=== PATIENT | male | born 1935 | race Caucasian/White ===

== ENCOUNTER 2017-03-02 16:37 | Emergency (ER) | payer OTHER ==
[2017-03-02] MEDS ORDERED: Sodium Chloride 0.9% 10 ML Syringe FLUSH PRN ×2 (17:30)
[2017-03-02] MEDS ORDERED: Acetaminophen 325 MG Tab PO ONE (17:30)
--- NOTE | 2017-03-02 17:35 | EDM.PDOC ---
ED HPI NEURO - General Chief Complaint: Neuro Symptoms/Deficits Stated Complaint: NOT ACTING RIGHT Time Seen by Provider: 03/02/17 17:23 Source: Reports: Patient, Family, RN notes reviewed History Limitations: Reports: No limitations - History of Present Illness INITIAL COMMENTS - FREE TEXT/NARRATIVE: 82-year-old gentleman presents emergency department today with a couple of issues he is complaining of burning with urination has been more confused at times he's also developed a new deviation of his tongue and left-sided facial droop, symptoms have been ongoing for the last couple days he does have a history of urinary tract infection with sepsis - Related Data Allergies/ADRs: Allergies Allergy/AdvReac Type Severity Reaction Status Date / Time IVP DYE Allergy Cannot Uncoded 03/02/17 16:55 Remember Home Meds: Home Meds . [Unable to Verify Home Med List] 03/02/17 [History] Past Medical History HEENT History: Reports: Hard of hearing, Impaired vision Cardiovascular History: Reports: Hypertension Genitourinary History: Reports: UTI, recurrent Musculoskeletal History: Reports: Fracture Other Musculoskeletal History: fingures Neurological History: Reports: Concussion Psychiatric History: Reports: Anxiety, Depression Endocrine/Metabolic History: Reports: Diabetes, type II - Infectious Disease History Infectious Disease History: Reports: Chicken pox, Mumps - Past Surgical History HEENT Surgical History: Reports: Cataract surgery GI Surgical History: Reports: Colonoscopy Musculoskeletal Surgical History: Reports: Hip replacement Social & Family History - Tobacco Use Smoking Status *Q: Never Smoker Second Hand Smoke Exposure: No - Caffeine Use Caffeine Use: Reports: Soda - Recreational Drug Use Recreational Drug Use: No ED ROS GENERAL - Review of Systems Review Of Systems: See Below Constitutional: Reports: fever, chills, weakness, fatigue HEENT: Reports: No symptoms Respiratory: Reports: No Symptoms Cardiovascular: Reports: No symptoms GI/Abdominal: Reports: No symptoms : Reports: dysuria Musculoskeletal: Reports: no symptoms Skin: Reports: no symptoms Neurological: Reports: Weakness, Other (Facial droop left side, tongue deviation to the left) ED EXAM, NEURO - Physical Exam Exam: See Below Text/Narrative:: General: Elderly male, not in any distress, alert and oriented x3 HEENT: head is atraumatic normocephalic, eyes pupils equal round reactive to light, sclera clear no conjunctivitis appreciated. Ears hearing aids in place bilaterally. Nose no septal deviation, nares are clear, no blood present. Mouth mucosa is dry and pink no erythema or exudate noted in soft palate, tongue is points to the left uvula is midline, dentition is intact. Neck: Supple no thyromegaly no tracheal deviation. Nodes: Cervical nodes subclavicular nodes nontender no palpable lymphadenopathy noted. Lungs: clear to auscultation bilaterally with symmetrical respirations, no adventitious noise appreciated. CV: Regular rate and rhythm S1 and S2 appreciated no murmurs rubs or gallops noted. Abdomen: Soft, nontender, no palpable masses or organomegaly appreciated, no distention no guarding bowel sounds are present, . Neuro: Cranial nerves II through XII grossly intact, power is 5 x 5 in the upper and lower extremities there is no pronator drift Skin: Warm and dry, intact Extremities: No lower extremity edema appreciated, Course - Vital Signs Last Recorded V/S: Last Vital Signs Temp 217.9 F H 03/02/17 20:04 Pulse 114 H 03/02/17 20:04 Resp 32 H 03/02/17 20:04 BP 142/72 H 03/02/17 20:04 Pulse Ox 92 L 03/02/17 20:04 - Orders/Labs/Meds Orders: Active Orders 24 hr Category Date Time Status EKG Documentation Completion [RC] ASDIRECTED Care 03/02/17 17:31 Active Peripheral IV Care [RC] . DIRECTED Care 03/02/17 17:30 Active Chest 1V Frontal [CR] Urgent Exams 03/02/17 17:30 Taken Head wo Cont [CT] Urgent Exams 03/02/17 17:30 Taken CULTURE BLOOD [BC] Urgent Lab 03/02/17 17:35 Results CULTURE BLOOD [BC] Urgent Lab 03/02/17 17:45 Received CULTURE URINE [RM] Urgent Lab 03/02/17 18:00 Results Blood Culture x2 Reflex Set [OM.PC] Urgent Oth 03/02/17 17:30 Ordered Peripheral IV Insertion Adult [OM.PC] Urgent Oth 03/02/17 17:30 Ordered EKG 12 Lead [EK] Urgent Ther 03/02/17 17:30 Ordered Labs: Laboratory Tests 03/02/17 03/02/17 03/02/17 Range/Units 17:35 17:35 17:35 WBC 23.3 H (4.5-11.0) K/uL RBC 4.94 (4.30-5.90) M/uL Hgb 15.8 H (12.0-15.0) g/dL Hct 46.3 (40.0-54.0) % MCV 94 (80-98) fL MCH 32 H (27-31) pg MCHC 34 (32-36) % Plt Count 191 (150-400) K/uL Neut % (Auto) 93 H (36-66) % Lymph % (Auto) 2 L (24-44) % [place] % (Auto) 5 (2-6) % Eos % (Auto) 0 L (2-4) % Baso % (Auto) 0 (0-1) % PT 12.0 (9.5-12.0) sec INR 1.13 (0.80-1.20) APTT 30.0 (27.0-36.0) sec Sodium 138 L (140-148) mmol/L Potassium 3.8 (3.6-5.2) mmol/L Chloride 101 (100-108) mmol/L Carbon Dioxide 25 (21-32) mmol/L Anion Gap 15.8 H (5.0-14.0) mmol/L BUN 31 H (7-18) mg/dL Creatinine 1.8 H (0.8-1.3) mg/dL Est Cr Clr Drug Dosing 31.54 mL/min Estimated GFR (MDRD) 36 L (>60) Glucose 457 H* (74-106) mg/dL Lactic Acid (0.4-2.0) mmol/L Calcium 8.7 (8.5-10.1) mg/dL Total Bilirubin 1.1 H (0.2-1.0) mg/dL AST 22 (15-37) U/L ALT 37 (12-78) U/L Alkaline Phosphatase 139 H (46-116) U/L Ammonia (11-32) mmol/L Total Protein 8.3 H (6.4-8.2) g/dL Albumin 3.4 (3.4-5.0) g/dL Globulin 4.9 H (2.3-3.5) g/dL Albumin/Globulin Ratio 0.7 L (1.2-2.2) Urine Color Urine Appearance Urine pH (4.5-8.0) Ur Specific [place] (1.008-1.030) Urine Protein (NEGATIVE) mg/dL Urine Glucose (UA) (NEGATIVE) mg/dL Urine Ketones (NEGATIVE) mg/dL Urine Occult Blood (NEGATIVE) Urine Nitrite (NEGAITVE) Urine Bilirubin (NEGATIVE) Urine Urobilinogen (NORMAL) mg/dL Ur Leukocyte Esterase (NEGATIVE) Urine RBC (0-5) Urine WBC (0-5) Ur Epithelial Cells Amorphous Sediment Urine Bacteria Urine Mucus 03/02/17 03/02/17 03/02/17 Range/Units 17:35 17:35 18:40 WBC (4.5-11.0) K/uL RBC (4.30-5.90) M/uL Hgb (12.0-15.0) g/dL Hct (40.0-54.0) % MCV (80-98) fL MCH (27-31) pg MCHC (32-36) % Plt Count (150-400) K/uL Neut % (Auto) (36-66) % Lymph % (Auto) (24-44) % [place] % (Auto) (2-6) % Eos % (Auto) (2-4) % Baso % (Auto) (0-1) % PT (9.5-12.0) sec INR (0.80-1.20) APTT (27.0-36.0) sec Sodium (140-148) mmol/L Potassium (3.6-5.2) mmol/L Chloride (100-108) mmol/L Carbon Dioxide (21-32) mmol/L Anion Gap (5.0-14.0) mmol/L BUN (7-18) mg/dL Creatinine (0.8-1.3) mg/dL Est Cr Clr Drug Dosing mL/min Estimated GFR (MDRD) (>60) Glucose (74-106) mg/dL Lactic Acid 2.7 H (0.4-2.0) mmol/L Calcium (8.5-10.1) mg/dL Total Bilirubin (0.2-1.0) mg/dL AST (15-37) U/L ALT (12-78) U/L Alkaline Phosphatase (46-116) U/L Ammonia < 10 L (11-32) mmol/L Total Protein (6.4-8.2) g/dL Albumin (3.4-5.0) g/dL Globulin (2.3-3.5) g/dL Albumin/Globulin Ratio (1.2-2.2) Urine Color Yellow Urine Appearance Turbid Urine pH 5.0 (4.5-8.0) Ur Specific [place] 1.015 (1.008-1.030) Urine Protein 100 H (NEGATIVE) mg/dL Urine Glucose (UA) 1000 H (NEGATIVE) mg/dL Urine Ketones Negative (NEGATIVE) mg/dL Urine Occult Blood Large (NEGATIVE) Urine Nitrite Negative (NEGAITVE) Urine Bilirubin Negative (NEGATIVE) Urine Urobilinogen 1 (NORMAL) mg/dL Ur Leukocyte Esterase Moderate (NEGATIVE) Urine RBC 20-30 H (0-5) Urine WBC 50-75 H (0-5) Ur Epithelial Cells Rare Amorphous Sediment Not seen Urine Bacteria Many Urine Mucus Not seen Meds: Medications Discontinued Medications Generic Name Dose Route Start Last Admin Trade Name Freq PRN Reason Stop Dose Admin Acetaminophen 650 mg 03/02/17 17:30 03/02/17 17:44 Tylenol PO 03/02/17 17:31 650 mg NOW ONE Administration Sodium Chloride 1,000 mls @ 500 mls/hr 03/02/17 18:45 03/02/17 18:41 Normal Saline IV 500 mls/hr ASDIRECTED SANDY Administration Piperacillin Sod/Tazobactam 50 mls @ 100 mls/hr 03/02/17 18:45 03/02/17 19:06 Sod 3.375 gm/ Sodium Chloride IV 100 mls/hr Q6H SANDY Administration Vancomycin HCl 1 gm/ Sodium 250 mls @ 150 mls/hr 03/02/17 18:45 03/02/17 19: 44 Chloride IV 03/02/17 20:24 150 mls/hr ONETIME ONE Administration Insulin Human Regular 10 unit 03/02/17 18:49 03/02/17 19:07 Novolin R IVPUSH 03/02/17 18:50 10 units ONETIME ONE Administration Protocol Sodium Chloride 10 ml 03/02/17 17:30 03/02/17 17:47 Saline Flush FLUSH 10 ml ASDIRECTED PRN Administration Keep Vein Open Sodium Chloride 10 ml 03/02/17 17:30 Saline Flush FLUSH ASDIRECTED PRN Keep Vein Open Departure - Departure Time of Disposition: 06:55 Disposition: DC/Tfer to Acute Hospital 02 Condition: fair Clinical Impression: Sepsis due to urinary tract infection Referrals: PCP,None [Primary Care Provider] - Forms: ED Department Discharge - My Orders Last 24 Hours: My Active Orders 03/02/17 17:30 Peripheral IV Care [RC] . DIRECTED Chest 1V Frontal [CR] Urgent Head wo Cont [CT] Urgent Blood Culture x2 Reflex Set [OM.PC] Urgent Peripheral IV Insertion Adult [OM.PC] Urgent EKG 12 Lead [EK] Urgent 03/02/17 17:31 EKG Documentation Completion [RC] ASDIRECTED 03/02/17 17:35 CULTURE BLOOD [BC] Urgent 03/02/17 17:45 CULTURE BLOOD [BC] Urgent 03/02/17 18:00 CULTURE URINE [RM] Urgent - Assessment/Plan Last 24 Hours: My Active Orders 03/02/17 17:30 Peripheral IV Care [RC] . DIRECTED Chest 1V Frontal [CR] Urgent Head wo Cont [CT] Urgent Blood Culture x2 Reflex Set [OM.PC] Urgent Peripheral IV Insertion Adult [OM.PC] Urgent EKG 12 Lead [EK] Urgent 03/02/17 17:31 EKG Documentation Completion [RC] ASDIRECTED 03/02/17 17:35 CULTURE BLOOD [BC] Urgent 03/02/17 17:45 CULTURE BLOOD [BC] Urgent 03/02/17 18:00 CULTURE URINE [RM] Urgent Plan: Assessment Acuity = acute Site and laterality = urinary tract infection producing sepsis collocated patient with history of recurrent urinary tract infections incontinence of urine , hypertension and diabetes mellitus type 2 also new left-sided facial droop with deviation of the tongue to the left side Etiology = suspicious for bacterial cause unclear etiology of new neurological findings Manifestations = confusion, fever Location of injury = home Lab values = WBC elevated at 23.3 consistent leukocytosis, INR normal limits 1.13 sodium low at 138 consistent hyponatremia creatinine elevated at 1.8 consistent with chronic renal failure stage GIIIB glucose elevated at 457 consistent hyperglycemia, lactic acid elevated at 2.7 consistent lactic acidosis total bilirubin elevated at 1.1 consistent hyperbilirubinemia ammonia level is less than 10 urinalysis reveals 20-30 rbc's consistent hematuria and 50 -75 WBCs consistent with pyuria CT scan of the head was negative for any acute intracranial process EKG demonstrates sinus tachycardia with a left bundle branch block, blood culture and urine culture are pending Plan Transfer to [facility] via EMS ground . This note was dictated using [employer] voice recognition software please call with any questions.
[2017-03-02] MEDS ORDERED: Sodium Chloride 0.9% 1,000 ML IV SCH (18:45)
[2017-03-02] MEDS ORDERED: Piperacillin/Tazobactam 3.375 GM in Sodium Chloride 0.9% 50 ML IV SCH (18:45)
[2017-03-02] MEDS ORDERED: Insulin Regular, Human 100 Units/ML 10 ML Vial IVPUSH ONE (18:49)
[2017-03-02 20:08] VITALS: BP 142/72
--- NOTE | 2017-03-03 09:14 | CR ---
Portable chest. Findings: Heart size upper limits of normal. Mild interstitial thickening. Correlate for interstitia l edema. Atypical infection difficult to exclude. No focal consolidation.
== END 2017-03-02 20:25 ==
LOC: JP.ED 16:37
DX: A41.9 Sepsis, unspecified organism (principal); N39.0 Urinary tract infection, site not specified; I10 Essential (primary) hypertension; F41.9 Anxiety disorder, unspecified; F32.9 Major depressive disorder, single episode, unspecified; E11.9 Type 2 diabetes mellitus without complications; Z98.49 Cataract extraction status, unspecified eye; Z88.8 Allergy status to other drugs, medicaments and biological substances; Z96.649 Presence of unspecified artificial hip joint
CPT/HCPCS: 36415; 70450; 71010; 80053; 81001; 82140; 83605; 85025; 85610; 85730; 87040; 87086; 87088; 87186; 93005; 96361; 96365; 96367; 99285; A9270; J2543; J3370; J7040; J7050; 93010